=== PATIENT | female | born 1990 | race African-American/Black ===

== ENCOUNTER 2018-10-29 15:20 | Outpatient (CLI) | payer MEDICAID ==
[~2018-10-29] VITALS: Ht 170.2 cm; Wt 109.1 kg
[2018-10-29 16:00] VITALS: BP 108/62; PULSE 93; TEMP 98.1
[2018-10-29 16:30] VITALS: BP 108/59; PULSE 83
[2018-10-29 17:30] VITALS: BP 102/51; PULSE 87
--- NOTE | 2018-10-29 18:15 | NUR ---
181- Bedside ultrasound being performed at this time by imaging. EFM not tracing at this time until 184.
[2018-10-29 18:38] LABS: TRICYCLIC ANTIDEPRESS URINE NEGATIVE
[2018-10-29 19:00] VITALS: BP 106/54; PULSE 86; TEMP 98.3
== END 2018-10-29 20:25 | disposition home or self-care (01) ==
LOC: LDRO 15:20
PROVIDERS: Obstetrics & Gynecology
DX: O62.9 Abnormality of forces of labor, unspecified (principal); Z3A.38 38 weeks gestation of pregnancy
CPT/HCPCS: J7120

== ENCOUNTER 2018-11-05 19:23 | Outpatient (CLI) | payer MEDICAID ==
[~2018-11-05] VITALS: Ht 170.2 cm; Wt 115.0 kg
--- NOTE | 2018-11-05 19:40 | NUR ---
Pt arrived on unit ambulatory, escorted by her mother and with complaints of contractions starting a couple days ago. Pt denies any leaking of fluid, vaginal bleeding and reports normal movement. EFM and toco monitors started. Vital signs WNL. SVE by this RN /. Spoke with Dr. Aaron. SVE, ctx pattern and FHR tracing were reviewed. Orders for labor assessment received.
[2018-11-05 20:11] VITALS: BP 129/82; PULSE 79; TEMP 97.8
--- NOTE | 2018-11-05 21:46 | NUR ---
Off EFM to sit on birthing ball.
--- NOTE | 2018-11-05 22:00 | NUR ---
Spoke with Dr. Aaron for an update on pt's status. We reviewed FHR tracing, ctx pattern and SVE by this RN . Orders for discharge home with instructions received. Information reviewed with pt. Pt verbalized an understanding, agrees with the plan and states no questions or concerns at this time.
[2018-11-06] MEDS ORDERED: BENADRYL50 MG PO (09:05)
== END 2018-11-05 22:25 | disposition home or self-care (01) ==
LOC: LDR 19:23 → LDRO 19:23 → LDR 19:24 → LDRO 22:25
DX: O62.9 Abnormality of forces of labor, unspecified (principal); Z3A.38 38 weeks gestation of pregnancy
CPT/HCPCS: OP

== ENCOUNTER 2018-11-06 08:47 | Inpatient (IN) | payer MEDICAID ==
[~2018-11-06] VITALS: Ht 170.2 cm; Wt 115.0 kg
[2018-11-06] VITALS (28 sets, daily range): BP systolic 104–156; BP diastolic 51–89; PULSE 70–123; TEMP 97.7–98.5
--- NOTE | 2018-11-06 08:50 | NUR ---
0850- Pt arrives on unit ambulatory for labor check. Pt very uncomfortable with UCs but coping well. Pt assisted in changing into gown by Pt's Mother. 0857- Pt into bed, EFM and TOCO applied and tracing. Assessment compelted. VSS. Pt denies VB, LOF. +FM.
[2018-11-06] MEDS ORDERED: BENADRYL50 MG PO (09:05)
--- NOTE | 2018-11-06 10:07 | NUR ---
Assumed care of patient. Sitting up for epidural. 1015 Test dose given by anesthesia Aelx. 1020 Lies down after epidural.
--- NOTE | 2018-11-06 10:22 | NUR ---
Rests in bed, alert. States feeling better. Mother at bedside.
--- NOTE | 2018-11-06 10:30 | NUR ---
0946- EFM and TOCO off, Pt up to void. 0955- Pt wonders about epidural, questions answered to best of ability. Pt requests epidural. Pt assisted back to bed. MURIEL Leblanc notified.
--- NOTE | 2018-11-06 10:30 | NUR ---
Rests in bed, alert. Denies any pain at this time.
--- NOTE | 2018-11-06 10:45 | NUR ---
1040 Dr. Aaron here, visits with patient. Arom done, moderate amount of light color meconium fluid. Pad changed. Warm blankets on.
[2018-11-06 10:53] LABS: BASO % 0.1 % (0.0-2.0); EOS % 0.1 % (0-4.0); GRAN # 7.8 (1.4-6.5); GRAN % 83.5 % (42.2-75.2); LYMPH # 1.1 (1.2-3.4); LYMPH % 11.7 % (20.0-51.0); MEAN CELL VOLUME 68 fl (80.0-100.0); MEAN CORPUSCULAR HGB CONC 32 g/dl (33.0-37.0); MONO # 0.4 (0.1-0.6); MONO % 4.3 % (1.7-9.3); PLATELET COUNT 215 K/mm3 (130-400); REDCELL DISTRIBUTION WIDTH-CV 16.7 % (11.5-14.5)
[2018-11-06 10:55] LABS: HEMATOCRIT 28.5 % (37.0-47.0); HEMOGLOBIN 9.1 g/dl (12.5-16.0); MEAN CORPUSCULAR HEMOGLOBIN 22 pg (27.0-31.0)
[2018-11-06 11:04] LABS: TRICYCLIC ANTIDEPRESS URINE NEGATIVE
--- NOTE | 2018-11-06 12:00 | NUR ---
Repositioned in bed, peanut ball under leg. Denies any needs at this time.
--- NOTE | 2018-11-06 13:15 | NUR ---
1320 Pitocin 2 lea units iv given as ordered and per protocol.
--- NOTE | 2018-11-06 13:30 | NUR ---
Rests in bed, alert. Family at bedside. Denies any needs at this time.
--- NOTE | 2018-11-06 13:45 | NUR ---
1353 Vag exam done, complete. Having late decels, repositioned in bed. Pitocin off, 028l on. Two variable decels down in the eightys for 50-60 seconds, then back up to 130s Dr. Aaron called and updated the above information. Dr. Aaron states to wait until I get there to push patient.
--- NOTE | 2018-11-06 14:15 | NUR ---
Dr. Aaron here. Visits with patient. Preps for delivery. 1419 Pushes with contractions. 1429 Spontaneous delivery of baby boy by Dr. Aaron. 1434 Spontaneous delivery of placenta by Dr. Aaron. Pitocin infusing at 333ccs an hour as ordered and per policy. Ice pack to perinium, fundal pressure given, small amount of flow noted.
--- NOTE | 2018-11-06 14:45 | NUR ---
Rests in bed, alert. Baby on chest, denies any needs at this time.
--- NOTE | 2018-11-06 15:30 | NUR ---
Rests in bed, alert. Family at bedside. Denies any needs at this time.
--- NOTE | 2018-11-06 17:30 | NUR ---
Rests in bed with eyes closed. Resperations even and unlabored.
--- NOTE | 2018-11-06 18:15 | NUR ---
1814- Pt ambulates to bathroom independenlty with standby assist x1. Voids without difficutly. Pericare explained and performed. Underwear, pad, and clean gown on. Pt ambulated to PP room. Oriented to room. Call light within reach. Pt requests to shower. Oriented to bathroom. Emergency call light explained. Pt verbalizes understanding. Baby sleeping in crib at bedside.
[2018-11-07 03:45] VITALS: BP 112/59; PULSE 87; TEMP 98.2
[2018-11-07 07:20] VITALS: BP 115/71; PULSE 92; TEMP 98.1
--- NOTE | 2018-11-07 10:09 | NUR ---
workers compensation analyst met with the patient to discuss history of illecit drug usage and discuss local parent resources. Patient, baby mackenzie Peralta, and patient's two daughters (9 years & 8 years old) were present. Patient reported that she had a + drug screening for marijuana at one of her first doctor visits's in [place] and at the time of marijuana usage she did not know she was . Once discovering she was the patient quit all drug and alcohol usage and has had negative urine screens since. Baby mackenzie Peralta was born healthy with negative drug screens but a baby cord stat was done and awaiting results. Patient has been living in [place] and moved to [place], [place] to be closer to her mother how lives is [place] approximately two weeks ago. The patient's 9 and 8 year old daughters had moved to [place], [place] prior to the patient's arrival and had been attending [employer]. Patient plans to stay in [place] for approximately a year and then move to [place], [place] to be closer to bronwyn Peralta' biological father who plans to be supportive even though his is long distance. Patient and social insurance administrator discussed local supports and patient reported she is enrolled and active in the local WIC program and also receives food stamp services. This social insurance administrator provided patient with the local [facility] Parent Resource Packet and referred her to places including Infant Toddler Services, Maternal Home Visit Services, Parents As Teachers, [employer] support groups, etc. Patient received care via Dr. Chambers and provide for her family as best she can with the support of her mother. workers compensation analyst updated nurse [place] and no further needs at this time. If bronwyn Peralta' cord blood stat test comes back with positive results social insurance administrator will follow as needed. Patient plans to discharge from the hospital 11/08/18 and the infant hearing nurse was entering patient's room upon social insurance administrator's departure.
[2018-11-07 16:30] VITALS: BP 116/66; PULSE 95; TEMP 98.4
[2018-11-07 21:30] VITALS: BP 107/67; PULSE 87; TEMP 98.4
[2018-11-08 09:33] VITALS: BP 96/49; PULSE 79; TEMP 97.8
[2018-11-08] MEDS ORDERED: MOTRIN 800800 MG/TAB PO (09:56)
[2018-11-08] MEDS ORDERED: PERCOCET 325 MG1 TA2 PO (09:57)
[2018-11-08 16:15] VITALS: BP 104/68; PULSE 72; TEMP 97.8
== END 2018-11-08 17:02 | disposition home or self-care (01) | DRG 807 ==
LOC: LDR 08:47 → LDRO 08:47 → LDR 09:15 → LDRO 09:17 → LDR 09:18 → OB 09:18
PROVIDERS: Obstetrics & Gynecology; ADMIT Obstetrics & Gynecology
PROC: 10E0XZZ Delivery of Products of Conception, External Approach (ICD-10-PCS; principal; 2018-11-06)
DX: O77.0 Labor and delivery complicated by meconium in amniotic fluid (principal); Z37.0 Single live birth; Z3A.38 38 weeks gestation of pregnancy; Z88.0 Allergy status to penicillin; O69.82X0 Labor and delivery complicated by other cord entanglement, without compression, not applicable or unspecified
CPT/HCPCS: J2590; J3370; J7050; J7120

== ENCOUNTER 2019-02-23 19:44 | Emergency (ER) | payer MEDICAID ==
[~2019-02-23] VITALS: Ht 170.2 cm; Wt 104.5 kg
[~2019-02-23 19:44] MED LIST: BENADRYL50 MG PO; MOTRIN 800800 MG/TAB PO; PERCOCET 325 MG1 TA2 PO
[2019-02-23 19:51] VITALS: TEMP 98.3
[2019-02-23 20:43] LABS: COLLECTION METHOD CLEAN CATCH
[2019-02-23 20:45] LABS: BASO # 0.1 (0.0-0.2); BASO % 0.6 % (0.0-2.0); EOS # 0.8 (0.0-0.7); EOS % 9.3 % (0-4.0); GRAN # 4.1 (1.4-6.5); GRAN % 48.8 % (42.2-75.2); HEMOGLOBIN 10.6 g/dl (12.5-16.0); LYMPH % 35.3 % (20.0-51.0); MEAN CELL VOLUME 64 fl (80.0-100.0); MEAN CORPUSCULAR HEMOGLOBIN 20 pg (27.0-31.0); MEAN CORPUSCULAR HGB CONC 31 g/dl (33.0-37.0); MONO # 0.5 (0.1-0.6); MONO % 5.9 % (1.7-9.3); PLATELET COUNT 309 K/mm3 (130-400); RED BLOOD COUNT 5.39 M/mm3 (4.10-5.30); REDCELL DISTRIBUTION WIDTH-CV 15.5 % (11.5-14.5)
[2019-02-23 20:47] LABS: HEMATOCRIT 34.3 % (37.0-47.0)
[2019-02-23 20:56] LABS: ALBUMIN 4.1 gm/dL (3.5-5.0); BILIRUBIN,TOTAL 0.3 mg/dL (0.0-1.0); C-REACTIVE PROTEIN 0.6 mg/dL (0.0-0.9); CALCIUM 9.3 mg/dL (8.4-10.2); CREATININE, serum 0.74 (0.52-1.25); POTASSIUM 3.9 mmol/L (3.4-5.0); TOTAL PROTEIN 7.4 gm/dL (6.4-8.2)
[2019-02-23 21:02] LABS: MUCOUS Present /lpf; PH 5 (5-8); SQUAMOUS EPITHELIAL 20-50 /hpf; URINE APPEARANCE Cloudy; URINE BACTERIA Rare /hpf; URINE BILIRUBIN Negative (NEGATIVE); URINE BLOOD Negative (NEGATIVE); URINE COLOR Yellow; URINE GLUCOSE Negative (NEGATIVE); URINE KETONE Trace (NEGATIVE); URINE LEUKOCYTE ESTERASE Trace (NEGATIVE); URINE NITRATE Negative (NEGATIVE); URINE PROTEIN(semi-quant) Negative (NEGATIVE); URINE RBC 0-2 /hpf
[2019-02-23] MEDS ORDERED: PROTONIX 40MG T40 MG PO (22:29)
[2019-02-23] MEDS ORDERED: ZOFRAN ODT4 MG PO (22:35)
[2019-02-23 22:37] VITALS: BP 102/71; PULSE 88
== END 2019-02-23 22:37 | disposition home or self-care (01) ==
LOC: COL.ER 19:44
PROVIDERS: Nurse Practitioner
DX: R10.13 Epigastric pain (principal); Z87.891 Personal history of nicotine dependence
CPT/HCPCS: J1885; J2405; J7030

== ENCOUNTER 2024-01-10 14:16 | Emergency (ER) | payer MEDICAID ==
[~2024-01-10] VITALS: Ht 167.6 cm; Wt 110.5 kg
[~2024-01-10 14:16] MED LIST changes: +PROTONIX 40MG T40 MG PO; +ZOFRAN ODT4 MG PO
[2024-01-10 14:23] VITALS: TEMP 98.5
[2024-01-10 14:53] LABS: BASO # 0.1 K/mm3 (0.0-0.2); BASO % 0.8 % (0.0-2.0); EOS # 0.3 K/mm3 (0.0-0.7); EOS % 5.1 % (0.0-4.0); GRAN # 3.7 K/mm3 (1.4-6.5); HEMOGLOBIN 10.5 g/dl (12.5-16.0); LYMPH # 2.3 K/mm3 (1.2-3.4); LYMPH % 33.9 % (20.0-51.0); MEAN CELL VOLUME 65 fl (80.0-100.0); MEAN CORPUSCULAR HEMOGLOBIN 21 pg (27-31); MEAN CORPUSCULAR HGB CONC 32 g/dl (33.0-37.0); MONO # 0.3 K/mm3 (0.1-0.6); MONO % 3.9 % (1.7-9.3); PLATELET COUNT 256 K/mm3 (130-400); RED BLOOD COUNT 5.09 M/mm3 (4.10-5.30); REDCELL DISTRIBUTION WIDTH-CV 15.9 % (11.5-14.5)
[2024-01-10 15:10] LABS: ALANINE AMINOTRANSFERASE 14 U/L (0-55); ALBUMIN 3.5 g/dL (3.5-5.0); ALKALINE PHOSPHATASE 46 U/L (40-150); ANION GAP 9 mmol/L (7-16); AST,SGOT 12 U/L (5-34); BILIRUBIN,TOTAL 0.3 mg/dL (0.2-1.2); BLOOD UREA NITROGEN 10 mg/dL (7-19); CALCIUM 8.3 mg/dL (8.4-10.2); CHLORIDE 108 mEq/L (98-107); CREATININE, serum 0.74 mg/dL (0.57-1.11); GLUCOSE 108 mg/dL (70-99); POTASSIUM 3.7 mEq/L (3.5-4.5); SODIUM 139 mEq/L (136-145); TOTAL PROTEIN 6.6 g/dl (6.2-8.1)
[2024-01-10] MEDS ORDERED: NS 1,000 ML IV ONE (15:15)
[2024-01-10 15:16] LABS: TROPONIN-I < 0.010 ng/mL (0.00-0.033)
[2024-01-10 15:21] LABS: COLLECTION METHOD CLEAN CATCH
[2024-01-10 15:31] LABS: PH 5.5 (5.0-8.5); URINE APPEARANCE CLOUDY (CLEAR/HAZY); URINE BLOOD 3+ (NEGATIVE); URINE COLOR YELLOW (YELLOW); URINE GLUCOSE NEGATIVE (NEGATIVE); URINE KETONE TRACE (NEGATIVE); URINE NITRATE NEGATIVE (NEGATIVE); URINE PROTEIN(semi-quant) TRACE (NEGATIVE)
[2024-01-10] MEDS ORDERED: CEFTIN 250250 MG/TAB PO (15:55)
[2024-01-10 16:01] VITALS: BP 113/72; PULSE 90
== END 2024-01-10 16:06 | disposition home or self-care (01) ==
LOC: COL.ER 14:16
PROVIDERS: Family Medicine; Personal Emergency Response Attendant
DX: R07.89 Other chest pain (principal); N30.00 Acute cystitis without hematuria